=== PATIENT | female | born 1990 | race Caucasian/White ===

== ENCOUNTER 2018-08-25 05:54 | Inpatient (IN) | payer MEDICAID ==
[2018-08-27] MEDS: LACTATED RINGER'S 1,000 ML IV ×2 (13:05→14:12)
[2018-08-27 14:13] LABS: ADD MAN DIFF? NO
[2018-08-27 14:17] LABS: BASOPHILS % 0.3 % (0.0-2.0); EOSINOPHILS % 0.3 % (0.0-7.0); HEMATOCRIT 33.8 % (37.0-47.0); HEMOGLOBIN 10.5 g/dl (12.0-16.0); LYMPHOCYTES # 2.2 10^3/ul (0.8-2.9); LYMPHOCYTES % 19.2 % (15.0-51.0); MEAN CORPUSCULAR HEMOGLOBIN 24.6 pg (29.0-33.0); MEAN CORPUSCULAR HGB CONC 31.1 g/dl (32.0-37.0); MEAN CORPUSCULAR VOLUME 79.2 fl (82.0-101.0); MEAN PLATELET VOLUME 9.9 fl (7.4-10.4); MONOCYTE # 0.6 10^3/ul (0.3-0.9); MONOCYTES % 4.8 % (0.0-11.0); NEUTROPHIL # 8.7 10^3/ul (1.6-7.5); NEUTROPHILS % 74.4 % (39.0-77.0); PLATELET COUNT 467 10^3/UL (140-415); RED BLOOD COUNT 4.27 10^6/ul (4.20-5.40); RED CELL DISTRIBUTION WIDTH 14.6 % (11.5-14.5)
[2018-08-27 14:17] LABS: WHITE BLOOD COUNT 11.7 10^3/ul (4.8-10.8)
[2018-08-27 14:33] LABS: ALANINE AMINOTRANSFERASE 15 IU/L (13-69); ALBUMIN 3.4 g/dl (3.3-4.9); ALBUMIN/GLOBULIN RATIO 0.94; ALKALINE PHOSPHATASE 135 IU/L (42-121); AMYLASE 88 U/L (11-123); ANION GAP 4 (5-13); ASPARTATE AMINO TRANSFERASE 23 IU/L (15-46); BILIRUBIN,INDIRECT 0.3 mg/dl (0-1.1); BILIRUBIN,TOTAL 0.3 mg/dl (0.2-1.3); BLOOD UREA NITROGEN 7 mg/dl (7-20); CALCIUM 9.3 mg/dl (8.4-10.2); CARBON DIOXIDE 22 mmol/L (21-31); CHLORIDE 107 mmol/L (97-110); Estimated GFR > 60 mL/min (>60); GLUCOSE 76 mg/dl (70-220); LIPASE 46 U/L (23-300); POTASSIUM 4.2 mmol/L (3.5-5.1); SODIUM 133 mmol/L (135-144)
[2018-08-27] MEDS ORDERED: OXYTOCIN 30 UNITS/LR 500 ML IV ×3 (22:00)
[2018-08-27] MEDS: ACETAMINOPHEN 325 MG TAB PO (22:00)
[2018-08-27] MEDS ORDERED: MISOPROSTOL 200 MCG TAB PR (22:00)
[2018-08-27] MEDS ORDERED: METHYLERGONOVINE 0.2 MG INJ IM (22:00)
[2018-08-27] MEDS ORDERED: LIDOCAINE 1% (MPF) 30 ML INJ INJ (22:00)
[2018-08-27] MEDS ORDERED: CARBOPROST 250 MCG INJ IM (22:00)
[2018-08-28 01:04] LABS: ADD MAN DIFF? NO
[2018-08-28 01:09] LABS: WHITE BLOOD COUNT 11.4 10^3/ul (4.8-10.8)
[2018-08-28 01:09] LABS: BASOPHILS % 0.4 % (0.0-2.0); EOSINOPHILS # 0.1 10^3/ul (0.0-0.5); EOSINOPHILS % 0.4 % (0.0-7.0); HEMATOCRIT 29.3 % (37.0-47.0); HEMOGLOBIN 9.2 g/dl (12.0-16.0); LYMPHOCYTES # 2.7 10^3/ul (0.8-2.9); LYMPHOCYTES % 23.7 % (15.0-51.0); MEAN CORPUSCULAR HEMOGLOBIN 24.9 pg (29.0-33.0); MEAN CORPUSCULAR HGB CONC 31.4 g/dl (32.0-37.0); MEAN CORPUSCULAR VOLUME 79.2 fl (82.0-101.0); MEAN PLATELET VOLUME 9.6 fl (7.4-10.4); MONOCYTE # 0.8 10^3/ul (0.3-0.9); NEUTROPHIL # 7.7 10^3/ul (1.6-7.5); NEUTROPHILS % 67.5 % (39.0-77.0); PLATELET COUNT 416 10^3/UL (140-415); RED CELL DISTRIBUTION WIDTH 14.5 % (11.5-14.5)
[2018-08-28 01:31] LABS: INR 0.93; PROTIME 12.6 Sec (11.9-14.9)
[2018-08-28] MEDS: LACTATED RINGER'S 1,000 ML IV ×3 (01:31→08:21)
[2018-08-28 01:32] LABS: PARTIAL THROMBOPLASTIN TIME 30.3 Sec (23.0-35.0)
[2018-08-28] MEDS: ACETAMINOPHEN 325 MG TAB PO (05:43)
[2018-08-28 15:03] LABS: RAPID PLASMA REAGIN NONREACTIVE (NR)
== END 2018-08-28 12:30 | disposition home or self-care (01) | DRG 833 ==
LOC: OBT 05:54 → L-D 08-27 11:51 → OBT 08-27 15:04 → L-D 08-27 15:04
DX: O26.893 Other specified pregnancy related conditions, third trimester (principal); R10.11 Right upper quadrant pain; O32.1XX0 Maternal care for breech presentation, not applicable or unspecified; Z3A.37 37 weeks gestation of pregnancy
CPT/HCPCS: 76705; 76818; 80053; 82150; 83690; 85025; 85610; 85730; 86592; 86850; 86900; 86901

== ENCOUNTER 2018-08-31 15:54 | Outpatient (CLI) | payer MEDICAID | END 2018-08-31 18:35 | disposition home or self-care (01) | LOC: OBT 15:54 → L-D 15:54 → OBT 18:35 | DX: O26.893 Other specified pregnancy related conditions, third trimester (principal); Z3A.37 37 weeks gestation of pregnancy; R10.11 Right upper quadrant pain | CPT/HCPCS: 76818 ==

== ENCOUNTER 2018-09-11 06:40 | Inpatient (IN) | payer MEDICAID ==
[2018-09-11] MEDS ORDERED: OXYTOCIN 30 UNITS/LR 500 ML BAG IV (07:00)
[2018-09-11] MEDS ORDERED: METHYLERGONOVINE 0.2 MG INJ IM ×2 (07:30→14:30)
[2018-09-11] MEDS ORDERED: MISOPROSTOL 200 MCG TAB PR ×2 (07:30→14:30)
[2018-09-11] MEDS ORDERED: CARBOPROST 250 MCG INJ IM ×2 (07:30→14:30)
[2018-09-11] MEDS ORDERED: OXYTOCIN 30 UNITS/LR 500 ML IV ×2 (07:30→14:30)
[2018-09-11] MEDS: LACTATED RINGER'S 1,000 ML IV ×2 (08:07→09:20)
[2018-09-11 08:19] LABS: ADD MAN DIFF? NO
[2018-09-11 08:21] LABS: BASOPHIL # 0.1 10^3/ul (0.0-0.1); BASOPHILS % 0.4 % (0.0-2.0); EOSINOPHILS # 0.1 10^3/ul (0.0-0.5); EOSINOPHILS % 0.4 % (0.0-7.0); HEMATOCRIT 32.1 % (37.0-47.0); LYMPHOCYTES # 2.2 10^3/ul (0.8-2.9); LYMPHOCYTES % 17.9 % (15.0-51.0); MEAN CORPUSCULAR HEMOGLOBIN 24.7 pg (29.0-33.0); MEAN CORPUSCULAR HGB CONC 31.2 g/dl (32.0-37.0); MEAN CORPUSCULAR VOLUME 79.3 fl (82.0-101.0); MEAN PLATELET VOLUME 10.4 fl (7.4-10.4); MONOCYTE # 0.7 10^3/ul (0.3-0.9); MONOCYTES % 5.7 % (0.0-11.0); NEUTROPHIL # 8.9 10^3/ul (1.6-7.5); NEUTROPHILS % 74.4 % (39.0-77.0); PLATELET COUNT 347 10^3/UL (140-415); RED BLOOD COUNT 4.05 10^6/ul (4.20-5.40); RED CELL DISTRIBUTION WIDTH 14.9 % (11.5-14.5)
[2018-09-11 08:52] LABS: INR 0.93; PROTIME 12.6 Sec (11.9-14.9)
[2018-09-11 09:09] LABS: HEPATITIS B SURFACE ANTIGEN NEGATIVE (NEGATIVE)
[2018-09-11] MEDS ORDERED: morphine SULFATE/PF (10 MG/10 ML) INJ (09:45)
[2018-09-11] MEDS ORDERED: PHENYLephrine (100 MCG/ML) 5ML SYG (09:46)
[2018-09-11] MEDS ORDERED: PHENYLephrine 10 MG INJ (09:46)
[2018-09-11] MEDS ORDERED: FENTAnyl 50 MCG/ML VIAL (10:29)
[2018-09-11] MEDS ORDERED: HYDROmorphONE 1 MG/5 ML IV SYRINGE IV ×3 (10:30)
[2018-09-11] MEDS ORDERED: DIPHENHYDRAMINE 50 MG INJ IV ×2 (10:30)
[2018-09-11] MEDS ORDERED: FENTAnyl 50 MCG/ML VIAL IV ×3 (10:30)
[2018-09-11] MEDS ORDERED: ONDANSETRON 4 MG INJ IV (10:30)
[2018-09-11] MEDS ORDERED: NALOXONE (0.4 MG/ML) INJ IV (10:30)
[2018-09-11] MEDS ORDERED: HYDROmorphONE 0.5 MG/0.5 ML SYG IV ×2 (10:30)
[2018-09-11] MEDS ORDERED: KETOROLAC 30 MG INJ IV (10:30)
[2018-09-11] MEDS ORDERED: ALBUTEROL 0.083% (NEB) 2.5 MG/3 ML AMP HHN (10:30)
[2018-09-11] MEDS ORDERED: METOCLOPRAMIDE 10 MG INJ IV (10:30)
[2018-09-11] MEDS: OXYTOCIN 30 UNITS/LR 500 ML IV ×2 (11:42→14:48)
[2018-09-11] MEDS: ONDANSETRON 4 MG INJ IV (11:47)
[2018-09-11] MEDS: CEFAZOLIN 2 GM/50 ML (PMX) 50 ML IVPB (12:10)
[2018-09-11] MEDS: DEXTROSE 5%-LR 1,000 ML IV ×2 (14:11→23:48)
[2018-09-11] MEDS ORDERED: METHYLERGONOVINE 0.2 MG TAB PO (14:30)
[2018-09-11] MEDS: LANOLIN HPA 1 PKT TOP (14:49)
[2018-09-11 15:47] LABS: RAPID PLASMA REAGIN NONREACTIVE (NR)
[2018-09-12] MEDS: KETOROLAC 30 MG INJ IV ×2 (01:15→06:26)
[2018-09-12] MEDS: DEXTROSE 5%-LR 1,000 ML IV (06:11)
[2018-09-12 08:24] LABS: ADD MAN DIFF? NO
[2018-09-12 08:30] LABS: WHITE BLOOD COUNT 13.3 10^3/ul (4.8-10.8)
[2018-09-12 08:30] LABS: BASOPHILS % 0.3 % (0.0-2.0); EOSINOPHILS % 0.2 % (0.0-7.0); HEMATOCRIT 28.9 % (37.0-47.0); HEMOGLOBIN 8.9 g/dl (12.0-16.0); LYMPHOCYTES # 2.2 10^3/ul (0.8-2.9); LYMPHOCYTES % 16.2 % (15.0-51.0); MEAN CORPUSCULAR HEMOGLOBIN 24.5 pg (29.0-33.0); MEAN CORPUSCULAR HGB CONC 30.8 g/dl (32.0-37.0); MEAN CORPUSCULAR VOLUME 79.6 fl (82.0-101.0); MEAN PLATELET VOLUME 10.6 fl (7.4-10.4); MONOCYTE # 0.9 10^3/ul (0.3-0.9); MONOCYTES % 6.8 % (0.0-11.0); NEUTROPHIL # 10.1 10^3/ul (1.6-7.5); NEUTROPHILS % 75.7 % (39.0-77.0); PLATELET COUNT 305 10^3/UL (140-415); RED BLOOD COUNT 3.63 10^6/ul (4.20-5.40); RED CELL DISTRIBUTION WIDTH 14.8 % (11.5-14.5)
[2018-09-12] MEDS: SENNA/DOCUSATE NA (8.6MG/50MG) TAB PO ×2 (09:22→22:38)
[2018-09-12] MEDS: HYDROCODONE/APAP (5/325) TAB PO ×4 (09:35→22:00)
[2018-09-12] MEDS: IBUPROFEN 800 MG TAB PO ×2 (13:56→22:40)
[2018-09-12 14:41] LABS: HAAIG REFLEX REFLEX FILED
[2018-09-12 15:11] LABS: ALANINE AMINOTRANSFERASE 13 IU/L (13-69); ALBUMIN 2.8 g/dl (3.3-4.9); ALKALINE PHOSPHATASE 106 IU/L (42-121); ASPARTATE AMINO TRANSFERASE 22 IU/L (15-46); BILIRUBIN,INDIRECT 0.2 mg/dl (0-1.1); BILIRUBIN,TOTAL 0.2 mg/dl (0.2-1.3); TOTAL PROTEIN 5.6 g/dl (6.1-8.1)
[2018-09-12 15:44] LABS: HEPATITIS B SURFACE ANTIGEN NEGATIVE (NEGATIVE)
[2018-09-12 16:02] LABS: HEPATITIS B CORE ANTIBODY NEGATIVE (NEGATIVE); HEPATITIS C VIRAL ANTIBODY NEGATIVE (NEGATIVE)
[2018-09-12] MEDS: DOCUSATE SODIUM 100 MG CAP PO (22:39)
[2018-09-12] MEDS: FERROUS SULFATE (EC) 325 MG TAB PO (22:39)
[2018-09-13] MEDS: IBUPROFEN 800 MG TAB PO ×3 (05:31→21:14)
[2018-09-13] MEDS: HYDROCODONE/APAP (5/325) TAB PO ×3 (05:32→21:14)
[2018-09-13] MEDS: DOCUSATE SODIUM 100 MG CAP PO ×2 (09:00→21:13)
[2018-09-13] MEDS: FERROUS SULFATE (EC) 325 MG TAB PO ×2 (09:00→21:13)
[2018-09-13] MEDS: SENNA/DOCUSATE NA (8.6MG/50MG) TAB PO ×2 (09:00→21:13)
[2018-09-14] MEDS: IBUPROFEN 800 MG TAB PO ×2 (05:45→14:15)
[2018-09-14] MEDS: HYDROCODONE/APAP (5/325) TAB PO ×2 (05:46→14:15)
[2018-09-14] MEDS: MEASLES,MUMPS,RUBELLA VACCINE INJ SC* (09:00)
[2018-09-14] MEDS ORDERED: DIPHTH/TET/ACEL PERTUSS (ADULT) 0.5 ML VIAL IM* (09:00)
[2018-09-14] MEDS: DOCUSATE SODIUM 100 MG CAP PO (09:00)
[2018-09-14] MEDS: FERROUS SULFATE (EC) 325 MG TAB PO (09:50)
[2018-09-14] MEDS: SENNA/DOCUSATE NA (8.6MG/50MG) TAB PO (09:50)
[2018-09-14] MEDS: DIPHTH/TET/ACEL PERTUSS (ADULT) 0.5 ML VIAL IM* (11:32)
== END 2018-09-14 17:29 | disposition home or self-care (01) | DRG 788 ==
LOC: L-D 06:40 → PP1 14:52
PROVIDERS: Obstetrics & Gynecology
PROC: 10D00Z1 Extraction of Products of Conception, Low, Open Approach (ICD-10-PCS; principal; 2018-09-11 09:00)
DX: O32.1XX0 Maternal care for breech presentation, not applicable or unspecified (principal); O90.81 Anemia of the puerperium; D64.9 Anemia, unspecified; O99.214 Obesity complicating childbirth; O99.89 Other specified diseases and conditions complicating pregnancy, childbirth and the puerperium; R10.11 Right upper quadrant pain; Z3A.39 39 weeks gestation of pregnancy; Z37.0 Single live birth
CPT/HCPCS: 76705; 76815; 80076; 85025; 85610; 85730; 86592; 86704; 86709; 86803; 86850; 86900; 86901; 87340; 90686; 99464